=== PATIENT | male | born 1970 | race Caucasian/White ===

== ENCOUNTER 2020-03-06 12:49 | Outpatient (CLI) | payer BC | END 2020-03-06 12:50 | disposition home or self-care (01) | LOC: ULT 12:49 | PROVIDERS: ATTEND Student in an Organized Health Care Education/Training Program | DX: R01.1 Cardiac murmur, unspecified (principal) | CPT/HCPCS: 93306 ==

== ENCOUNTER 2020-03-09 10:46 | Outpatient (CLI) | payer BC, OTHER ==
[2020-03-09 14:23] LABS: #Basophils 0.1 thou/uL (0.0-0.2); #Eosinphils 0.2 thou/uL (0.0-0.7); #Lymphocytes 1.9 thou/uL (1.20-3.40); #Monocytes 0.7 thou/uL (0.11-0.59); #Neutrophils 4.5 thou/uL (1.40-6.50); %Basophils 0.9 % (0.0-1.0); %Eosinophils 2.3 % (0.0-10.0); %Lymphocytes 26.3 % (21.0-51.0); %Monocytes 9.9 % (0.0-10.0); %Neutrophils 60.6 % (42.0-75.0); Hemoglobin 14.6 g/dL (14.0-18.0); Mean Corpuscular HGB CONC 33.3 g/dL (32.0-36.0); Mean Corpuscular Hemoglobin 34.6 pg (27.0-31.0); Mean Platelet Volume 7.4 fL (7.4-10.4); Platelet Count 261 thou/uL (130-400); RBC Distribution Width 11.8 % (11.5-14.5); Red Blood Cell (RBC) Count 4.21 mill/uL (4.70-6.10); White Blood Cell (WBC) Count 7.4 thou/uL (4.8-10.8)
[2020-03-09 14:44] LABS: ALT (SGPT) 16 U/L (8-55); AST (SGOT) 14 U/L (5-34); Albumin 4.1 g/dL (3.5-5.0); Alkaline Phosphatase 64 U/L (40-110); Anion Gap 10 mmol/L (10-20); BUN (Urea Nitrogen) 7 mg/dL (8.4-25.7); Bilirubin, Total 0.6 mg/dL (0.2-1.2); Calc. Creatinine Clearance 0 mL/min (70-130); Calcium 8.8 mg/dL (7.8-10.44); Carbon Dioxide 26 mmol/L (22-29); Chloride 99 mmol/L (98-107); Estimated GFR-MDRD Greater than 90; Globulin 2.3 g/dL (2.4-3.5); Glucose 84 mg/dL (70-105); Potassium 3.8 mmol/L (3.5-5.1); Protein, Total 6.4 g/dL (6.0-8.3); Sodium 131 mmol/L (136-145)
[2020-03-10 19:51] LABS: SARS-CoV-2 MS2 Positive; SARS-CoV-2 N Gene Negative; SARS-CoV-2 S Gene Negative; SARS-CoV-2 orf1ab Negative
== END 2020-03-09 10:47 | disposition home or self-care (01) ==
LOC: LABBT 10:46
PROVIDERS: ATTEND Internal Medicine Cardiovascular Disease
DX: Z01.812 Encounter for preprocedural laboratory examination (principal); Z11.59 Encounter for screening for other viral diseases; I25.10 Atherosclerotic heart disease of native coronary artery without angina pectoris
CPT/HCPCS: 80053; 85025; 87635; U0003

== ENCOUNTER 2020-03-13 06:01 | Day surgery (SDC) | payer BC ==
[2020-03-09 13:17] VITALS: BMI 25.1
[2020-03-13] MEDS ORDERED: Fentanyl 100 MCG/2 ML VIAL ONE (07:17)
[2020-03-13] MEDS ORDERED: Midazolam HCl 2 mg/2 ml Vial ONE (07:17)
[2020-03-13] MEDS ORDERED: Heparin 10,000 UNITS/1 ML VIAL ONE (07:18)
[2020-03-13] MEDS ORDERED: Verapamil 5 MG/2 ML VIAL ONE (07:18)
[2020-03-13] MEDS ORDERED: Enalaprilat Dihydrate 1.25 MG/ML VIAL ONE (07:18)
[2020-03-13] MEDS ORDERED: Nitroglycerin 100MG/250ML BOT 250 ML ONE (07:18)
[2020-03-13] MEDS ORDERED: DOPamine 400 MG/D5W 250 ML 250 ML ONE (07:48)
[2020-03-13] MEDS ORDERED: Iopamidol 370 76% 100 ML VIAL ONE (09:20)
--- NOTE | 2020-03-13 13:16 | CON ---
DATE OF CONSULTATION: HISTORY OF PRESENT ILLNESS: This is a 50-year-old gentleman with minimal medical care prior to this evaluation. [facility] for 2 episodes of near syncope after working outside. He was found to have a loud aortic stenosis murmur on a cardiac echo, confirmed this with mean and peak gradients of 50 and 90 and a valve area of about 0.5, although one leaflet seem to move. It was unclear whether he had a bicuspid or tricuspid valve. Left ventricular systolic function was preserved. He underwent cardiac catheterization today, showing about a 75% stenosis in the distal OM that was sizable. PAST MEDICAL HISTORY: Negative for any major medical problems, but does have dyslipidemia. FAMILY HISTORY: Unknown as he is adopted. SOCIAL HISTORY: The patient was a greater than a pack per day smoker until the past couple of weeks when he is down to about a half a pack a day. He also drank about a six-pack of beer every day, but stopped this about 2 months ago. The patient is . MEDICATIONS: Include: 1. Aspirin a day. 2. Ibuprofen 3 times a day. 3. Atorvastatin 40 a day. PAST SURGICAL HISTORY: 1. Tonsillectomy. 2. A ganglion cyst removal, right wrist. ALLERGIES: NONE KNOWN. REVIEW OF SYSTEMS: PHYSICAL EXAMINATION: VITAL SIGNS: Weight 177, height 71, heart rate 70, and blood pressure 120/70. NECK: Soft radiated bruit on the right. CARDIAC: Regular rate and rhythm. Harsh loud systolic murmur across the precordium. ABDOMEN: Soft and nontender. EXTREMITIES: He has palpable pedal pulses. He has a left radial pulse and he has a dressing on his right wrist. He has no peripheral edema. ASSESSMENT: At this time, it appears that the patient needs a mechanical aortic valve as well as a single graft to his obtuse marginal system. He has on review of systems no history of GI bleeding or hematochezia. He has nocturia x3-4, but states he drinks a lot of water during the day. He has had no history of stroke or TIA. He has no claudication. PLAN: CT scan today to evaluate the ascending aorta and then proceed with aortic valve replacement as a single bypass grafting probably next week. Job ID: [id number]
--- NOTE | 2020-03-13 13:58 | CT ---
CHEST CT WITHOUT CONTRAST: HISTORY: Evaluate the size of the ascending thoracic aorta. Preoperative study. COMPARISON: None. FINDINGS: Mediastinum: No mass, lymphadenopathy or hematoma. Heart: Normal heart size. No significant pericardial fluid. Trachea and central bronchi: Patent. Pleural spaces: No pleural effusion. Pneumothorax: None. Small bleb in the junction of the superior segment of the right lower lobe and right upper lobe. No s uspicious masses, consolidation or pulmonary contusions. Upper solid abdominal viscera is grossly unremarkable. No lytic or blastic lesions within the osseous structures. Remote compression deformity with mild los s of vertebral body height at T4 and T9. Aorta: Limited evaluation by the lack of IV contrast. There is calcified plaque in the aortic valve. At the level of the bifurcation of the central pulmonary artery, the aorta measures 3.7 cm anterior-posterior by 4.1 cm mediolateral. At the level of the pulmonary artery trunk, the aorta buster ures 3.9 cm anterior-posterior by 3.8 cm mediolateral. IMPRESSION: Upper normal caliber of the ascending thoracic aorta. Transcribed Date/Time: 03/13/2020 2:17 PM
== END 2020-03-13 13:50 | disposition home or self-care (01) ==
LOC: CCL 06:01
PROVIDERS: ATTEND Internal Medicine Cardiovascular Disease
PROC: 4A023N7 Measurement of Cardiac Sampling and Pressure, Left Heart, Percutaneous Approach (ICD-10-PCS; principal; 2020-03-13)
PROC: B2011ZZ Plain Radiography of Multiple Coronary Arteries using Low Osmolar Contrast (ICD-10-PCS; principal; 2020-03-13)
DX: I35.0 Nonrheumatic aortic (valve) stenosis (principal); F17.210 Nicotine dependence, cigarettes, uncomplicated; Z79.82 Long term (current) use of aspirin; Z79.899 Other long term (current) drug therapy
CPT/HCPCS: 71250; 93454; 99152; C1769; J1265; J1644; J2250; J3010; Q9967

== ENCOUNTER 2020-03-20 06:31 | Outpatient (CLI) | payer BC, OTHER ==
[2020-03-20 22:19] LABS: SARS-CoV-2 MS2 Positive; SARS-CoV-2 N Gene Negative; SARS-CoV-2 S Gene Negative; SARS-CoV-2 orf1ab Negative
== END 2020-03-20 06:32 | disposition home or self-care (01) ==
LOC: LABBT 06:31
PROVIDERS: ATTEND Thoracic Surgery (Cardiothoracic Vascular Surgery)
DX: Z01.818 Encounter for other preprocedural examination (principal); T84.012D Broken internal right knee prosthesis, subsequent encounter
CPT/HCPCS: 87635; 93005; 93010; U0003

== ENCOUNTER 2020-03-20 09:00 | Inpatient (IN) | payer BC, OTHER ==
[2020-03-20 10:47] LABS: Hemoglobin 14.8 g/dL (14.0-18.0); Mean Corpuscular HGB CONC 33.5 g/dL (32.0-36.0); Mean Corpuscular Hemoglobin 34.5 pg (27.0-31.0); Mean Platelet Volume 7.4 fL (7.4-10.4); Platelet Count 300 thou/uL (130-400); RBC Distribution Width 11.6 % (11.5-14.5); Red Blood Cell (RBC) Count 4.28 mill/uL (4.70-6.10); White Blood Cell (WBC) Count 6.5 thou/uL (4.8-10.8)
[2020-03-20 11:16] LABS: Anion Gap 9 mmol/L (10-20); BUN (Urea Nitrogen) 9 mg/dL (8.4-25.7); Calc. Creatinine Clearance 0 mL/min (70-130); Calcium 9.2 mg/dL (7.8-10.44); Carbon Dioxide 29 mmol/L (22-29); Chloride 100 mmol/L (98-107); Estimated GFR-MDRD Greater than 90; Glucose 87 mg/dL (70-105); Sodium 134 mmol/L (136-145)
[2020-03-22] MEDS ORDERED: Vancomycin 1 GM/200 ML BAG ONE (06:20)
[2020-03-22] MEDS ORDERED: Fentanyl 250 MCG/5 ML VIAL ONE (06:27)
[2020-03-22] MEDS ORDERED: Midazolam HCl 2 mg/2 ml Vial ONE (06:27)
[2020-03-22] MEDS ORDERED: Albumin 5% 500 ML ONE ×2 (06:28→06:35)
[2020-03-22] MEDS ORDERED: Phenylephrine 10 MG/ML VIAL ONE (06:28)
[2020-03-22] MEDS ORDERED: Dexmedetomidine 200 MCG/2 ML VIAL ONE (06:28)
[2020-03-22] MEDS ORDERED: Heparin 10,000 UNITS/1 ML VIAL 30,000 UNITS in Sodium Chloride 0.9% 1,000 ML FS SCH (07:00)
[2020-03-22] MEDS ORDERED: PHENYLEPHRINE-NS 100 MCG/ML 10 ML SYRINGE ONE ×2 (08:13→13:46)
[2020-03-22] MEDS ORDERED: Insulin Regular 300 UNITS/3 ML VIAL ONE (08:34)
[2020-03-22] MEDS ORDERED: Magnesium 2 GM/50 ML 2 GM in Premix Bag 1 BAG IVPB SCH (12:05)
[2020-03-22] MEDS ORDERED: Promethazine HCl 25 MG/ML VIAL IM PRN (12:05)
[2020-03-22] MEDS ORDERED: hydrALAZINE 20 MG/ML VIAL SLOW IVP PRN (12:05)
[2020-03-22] MEDS ORDERED: niCARdipine 25 MG in Sodium Chloride 0.9% 250 ML 250 ML IVPB PRN (12:05)
[2020-03-22] MEDS ORDERED: Bisacodyl 10 MG SUPP PR PRN (12:05)
[2020-03-22] MEDS ORDERED: Acetaminophen 325 MG TAB PO PRN (12:05)
[2020-03-22] MEDS ORDERED: Norepinephrine 8 MG/0.9% NS 250 ML IVPB PRN (12:05)
[2020-03-22] MEDS ORDERED: Morphine 2 MG/ML SYRINGE SLOW IVP PRN (12:05)
[2020-03-22] MEDS ORDERED: Hetastarch 6% 500 ML 500 ML IVPB PRN (12:05)
[2020-03-22] MEDS ORDERED: Mag-Al 1200 mg/1200 mg/30 ML UDCUP PO PRN (12:05)
[2020-03-22] MEDS ORDERED: Bisacodyl 5 MG TAB PO PRN (12:05)
[2020-03-22] MEDS ORDERED: HYDROcodone/Acetaminophen 5/325 mg Tablet PO PRN (12:05)
[2020-03-22] MEDS ORDERED: Guaifenesin DM 100-10/5 ML UDCUP PO PRN (12:05)
[2020-03-22] MEDS ORDERED: Nitroglycerin 50 MG/250 ML BOT 250 ML IVPB PRN (12:05)
[2020-03-22] MEDS ORDERED: Fentanyl 100 MCG/2 ML VIAL SLOW IVP PRN (12:05)
[2020-03-22] MEDS ORDERED: Post-Op Insulin Drip Protocol IVPB ONE (12:05)
[2020-03-22 12:19] LABS: Actual Bicarbonate (HCO3a) 24.5 mEq/L (22-28); Base Excess (BEa) -2.8 mEq/L (-2.0 to +3.0); CO2 Tension 53.2 mmHg (35.0-45.0); Calcium, Ionized 1.16 mmol/L (1.12-1.30); Carboxyhemoglobin (COHb) 0.5 gm% (0.0-3.0); Hemoglobin (Hb) 12.5 g/dL (14.0-18.0); O2 Tension (PaO2), arterial 130.4 mmHg (80.0-100.0); Potassium - ABG Lab 4.13 mmol/L (3.70-5.30); pH, Arterial 7.28 (7.35-7.45)
[2020-03-22 12:20] LABS: Puncture Site ALINE
[2020-03-22 12:26] LABS: #Basophils 0.1 thou/uL (0.0-0.2); #Eosinphils 0.2 thou/uL (0.0-0.7); #Lymphocytes 1.4 thou/uL (1.20-3.40); #Monocytes 1.1 thou/uL (0.11-0.59); #Neutrophils 16.6 thou/uL (1.40-6.50); %Basophils 0.3 % (0.0-1.0); %Eosinophils 0.8 % (0.0-10.0); %Lymphocytes 7.3 % (21.0-51.0); %Monocytes 5.6 % (0.0-10.0); %Neutrophils 86.1 % (42.0-75.0); Hemoglobin 12.4 g/dL (14.0-18.0); Mean Corpuscular HGB CONC 34.2 g/dL (32.0-36.0); Mean Corpuscular Hemoglobin 34.8 pg (27.0-31.0); Mean Platelet Volume 6.9 fL (7.4-10.4); Platelet Count 200 thou/uL (130-400); RBC Distribution Width 11.6 % (11.5-14.5); Red Blood Cell (RBC) Count 3.57 mill/uL (4.70-6.10); White Blood Cell (WBC) Count 19.3 thou/uL (4.8-10.8)
[2020-03-22] MEDS ORDERED: Dextrose 50% Abboject 50 ML SYRINGE SLOW IVP PRN (12:30)
[2020-03-22] MEDS ORDERED: Dextrose 5% in Water 1,000 ML IV PRN (12:30)
[2020-03-22] MEDS ORDERED: HUMULIN R 100 UNITS in Sodium Chloride 0.9% 100 ML IVPB SCH (12:30)
[2020-03-22 12:31] LABS: INR-International Normal Ratio 1.4; PTT 37.2 sec (22.9-36.1); Prothrombin Time 17.3 sec (12.0-14.7)
[2020-03-22] MEDS: Fentanyl 100 MCG/2 ML VIAL SLOW IVP PRN (12:34)
[2020-03-22] MEDS: Ketorolac Tromethamine 30 MG/ML VIAL IVP SCH ×3 (12:45→23:01)
[2020-03-22 12:48] LABS: Anion Gap 9 mmol/L (10-20); BUN (Urea Nitrogen) 10 mg/dL (8.4-25.7); Calc. Creatinine Clearance 123 mL/min (70-130); Calcium 7.7 mg/dL (7.8-10.44); Carbon Dioxide 25 mmol/L (22-29); Chloride 111 mmol/L (98-107); Estimated GFR-MDRD Greater than 90; Glucose 115 mg/dL (70-105); Potassium 4.1 mmol/L (3.5-5.1); Sodium 141 mmol/L (136-145)
--- NOTE | 2020-03-22 12:58 | RAD ---
EXAM: CHEST ONE VIEW HISTORY: Post open heart surgery. COMPARISON: None FINDINGS: Endotracheal tube is noted in place with tip overlying the T5 vertebral body and above the level of t he esteban. Right-sided vascular catheter is noted in place with subclavian approach with tip overlies but location of the right atrium near the cavoatrial junction. Mediastinal drains are noted in place. Median sternotomy wires and evidence of cardiac valve replacement are seen. Cardiac silhouette is magnified by projection. Pulmonary vasculature is at the upper limits of normal. The ace ngs are clear. No pneumothorax or pleural effusion is identified. Osseous structures have a normal appearance. IMPRESSION: Median sternotomy wires noted with lines and tubes in place as described above. No pneumothorax or pl eural effusion is seen.
[2020-03-22] MEDS: Ondansetron PF 4 MG/2 ML Vial IVP PRN (13:42)
[2020-03-22] MEDS: CEFAZOLIN 2 GM in Premix Bag 1 BAG IVPB SCH ×2 (13:45→21:00)
[2020-03-22] MEDS ORDERED: Vecuronium 10 MG VIAL ONE (13:46)
[2020-03-22] MEDS ORDERED: Papaverine 60 MG/2 ML VIAL ONE (13:46)
[2020-03-22] MEDS ORDERED: Calcium Chloride 1 GM/10 ML Abboject SYRINGE ONE (13:46)
[2020-03-22] MEDS ORDERED: Magnesium Sulfate 1 GM/2 ML VIAL ONE (13:46)
[2020-03-22] MEDS ORDERED: Sodium Bicarb 50 MEQ/50 ML Abboject 8.4% SYRINGE ONE (13:46)
[2020-03-22] MEDS ORDERED: Rocuronium Bromide 10 MG/ML (10ML VIAL) ONE (13:46)
[2020-03-22] MEDS ORDERED: Lidocaine 2% PF 5 ML VIAL ONE (13:46)
[2020-03-22] MEDS ORDERED: Potassium Chloride 60 MEQ/30 ML VIAL ONE (13:46)
[2020-03-22] MEDS ORDERED: Protamine Sulfate 250 MG/25 ML VIAL ONE (13:46)
[2020-03-22] MEDS ORDERED: Ondansetron PF 4 MG/2 ML Vial ONE (13:46)
[2020-03-22] MEDS ORDERED: Ketorolac Tromethamine 30 MG/ML VIAL ONE (13:46)
[2020-03-22] MEDS ORDERED: Cardioplegic Soln 1,000 ML BAG ONE (13:46)
[2020-03-22] MEDS ORDERED: Dexamethasone 20 MG/5 ML VIAL ONE (13:46)
[2020-03-22] MEDS ORDERED: Heparin 5,000 UNITS/ML VIAL ONE (13:46)
[2020-03-22] MEDS ORDERED: Heparin 30,000 units/30 ml VIAL ONE (13:46)
[2020-03-22] MEDS ORDERED: Aminocaproic Acid 5 GM/20 ML VIAL ONE (13:46)
[2020-03-22] MEDS ORDERED: Thrombin 5000 UNITS/5 ML VIAL ONE (13:46)
[2020-03-22] MEDS: DOPamine 400 MG/D5W 250 ML 250 ML IVPB PRN (13:50)
--- NOTE | 2020-03-22 14:12 | OP ---
DATE OF PROCEDURE: 03/22/2020 PREOPERATIVE DIAGNOSES: Critical aortic valve stenosis, single-vessel coronary artery disease. PROCEDURES: Aortic valve replacement with a #21 Inspiris bioprosthetic valve and coronary artery bypass graft x1 with saphenous vein to distal obtuse marginal. SURGEON: Jeremias Desouza MD FARM OPERATOR: Dr. Panda. TRANSFUSION: One platelet pack. DESCRIPTION OF PROCEDURE: After adequate anesthesia had been obtained, Dr. Panda did an open saphenous vein harvest of the right greater saphenous vein while I performed a median sternotomy. The pericardium was opened. Traction sutures were placed. Pursestring sutures were placed in the aorta with some bleeding evidently from a very thin aortic wall. Heparin was given after adequate ACT aortic cannula was placed. A right atrial dual stage venous cannula was placed, and cardiopulmonary bypass was began with good ACT levels greater than 500 seconds. A right superior pulmonary vein sump was placed. The heart was elevated into the wound to examine the obtuse marginal, and it was noted that the patient had rather severe left ventricular hypertrophy. The aorta was crossclamped, and a 1200 mL of [place] cardioplegic solution was given. The obtuse marginal was opened, and saphenous vein was anastomosed here. Following this, the aorta was opened about 2 cm above what was expected to be the annulus. Inspection demonstrated a bicuspid aortic valve with no clearly defined annulus. The valve was removed piecemeal taking care to remove any particulate matter. During takedown of the valve, the left main could not be visualized. The right coronary artery was never visualized. After initially removing what was felt to be the bulk of the valve, it was felt that dissection may have been carried down along the anterior leaflet of the mitral valve, although the leaflet was intact. Between the left and right coronary cusps, there was severe thickening and it was not clear whether we were dealing with muscle or valve leaflet. Annular sutures were placed along the noncoronary annulus, which was more easily identified tacking the mitral valve leaflet back to the annulus. Further inspection and dissection along the left coronary leaflet did finally demonstrate the left main coronary artery and it lied immediately adjacent to the annulus. Further valve was then removed along this area, and it was evident at this time that the valve was about a cm thick, and we were not visualizing muscle, but the anterior of a thickened valve. This was removed, and at that time, a 21 Sizer was felt to be the largest that could be fit into the aorta and then through the annulus. Due to the rather irregular tissue edges in the region of the annulus due to the very thickened valve, it was felt by Dr. Panda and myself that mechanical leaflets might impinge in this region, and for this reason, it was elected to place the Inspiris valve instead. After pledgeted sutures had been placed circumferentially with the pledgets deep to the annulus with about 20 sutures, the valve was then seated. Sutures were then secured. Following which there appeared to be nice seeding circumferentially. Inspection through the valve was done to determine if there was any further loose debris. The ventricle had been irrigated copiously prior to seating the valve. Following this, the aorta was closed with a double layer of 5-0 Prolene suture. The CO2 had been instilled into the pericardium well throughout the procedure, and air was vented through the aortic root while the aorta was being closed. Following this, the cross-clamp was removed, and the partial occluding clamp was placed, and a single proximal anastomosis was performed on the aortic root. The patient spontaneously had a sinus rhythm. After rewarming, the patient was weaned from cardiopulmonary bypass removing the sump, and then aortic and right atrial cannulas after protamine administration had begun. Aortic cannulation site was dry, but was secured with an additional 5-0 Prolene suture. Temporary ventricular pacing wires were placed as well as 2 mediastinal drains. The sternum was reapproximated with #7 interrupted wire using vancomycin paste on the sternal edges. There was significant oozing from the sternal edges throughout the case, and platelet pack was ordered. Additional 50 mg of protamine was given while the subcutaneous tissue and skin were closed in layers. Job ID: [id number]
[2020-03-22] MEDS: Insulin Regular 300 UNITS/3 ML VIAL SC PRN ×3 (16:24→23:45)
[2020-03-22 16:32] LABS: Actual Bicarbonate (HCO3a) 18.7 mEq/L (22-28); Base Excess (BEa) -1.8 mEq/L (-2.0 to +3.0); Calcium, Ionized 1.09 mmol/L (1.12-1.30); Carboxyhemoglobin (COHb) 0.5 gm% (0.0-3.0); Hemoglobin (Hb) 12.7 g/dL (14.0-18.0); O2 Tension (PaO2), arterial 128.3 mmHg (80.0-100.0); Potassium - ABG Lab 3.53 mmol/L (3.70-5.30)
[2020-03-22] MEDS: Vancomycin 1 GM in Premix Bag 1 BAG IVPB SCH (17:00)
[2020-03-22] MEDS: Sodium Chloride 0.9% 1,000 ML IV SCH (17:00)
[2020-03-22 17:04] LABS: CO2 Tension 21.9 mmHg (35.0-45.0); pH, Arterial 7.55 (7.35-7.45)
[2020-03-22 17:05] LABS: ALV-art Gradient 129.525 (0-20); Puncture Site LINE
[2020-03-22 18:03] LABS: Hemoglobin 11.2 g/dL (14.0-18.0)
[2020-03-22 18:13] LABS: Potassium 3.5 mmol/L (3.5-5.1)
[2020-03-22] MEDS: Potassium Chloride 20 MEQ/100 ML PREMIX BAG IVPB PRN (18:46)
[2020-03-22] MEDS: HYDROcodone/Acetaminophen 5/325 mg Tablet PO PRN (19:36)
[2020-03-22] MEDS: Atorvastatin Calcium 40 MG TAB PO SCH (20:48)
[2020-03-22] MEDS: Famotidine/PF 20 mg/2ml Vial SLOW IVP SCH (20:48)
[2020-03-23] MEDS: HYDROcodone/Acetaminophen 5/325 mg Tablet PO PRN ×5 (01:07→20:54)
[2020-03-23] MEDS: Fentanyl 100 MCG/2 ML VIAL SLOW IVP PRN (02:51)
[2020-03-23] MEDS: DOPamine 400 MG/D5W 250 ML 250 ML IVPB PRN ×2 (03:05→17:12)
[2020-03-23] MEDS: Insulin Regular 300 UNITS/3 ML VIAL SC PRN (04:10)
[2020-03-23 04:53] LABS: Anion Gap 8 mmol/L (10-20); BUN (Urea Nitrogen) 8 mg/dL (8.4-25.7); Calc. Creatinine Clearance 133 mL/min (70-130); Carbon Dioxide 24 mmol/L (22-29); Chloride 108 mmol/L (98-107); Estimated GFR-MDRD Greater than 90; Glucose 120 mg/dL (70-105); Potassium 3.9 mmol/L (3.5-5.1); Sodium 136 mmol/L (136-145)
[2020-03-23 05:14] LABS: #Lymphocytes 1.1 thou/uL (1.20-3.40); #Monocytes 1.3 thou/uL (0.11-0.59); #Neutrophils 8.6 thou/uL (1.40-6.50); %Basophils 0.2 % (0.0-1.0); %Eosinophils 0.2 % (0.0-10.0); %Lymphocytes 9.6 % (21.0-51.0); Hemoglobin 10.2 g/dL (14.0-18.0); Mean Corpuscular HGB CONC 33.4 g/dL (32.0-36.0); Mean Platelet Volume 7.4 fL (7.4-10.4); Platelet Count 207 thou/uL (130-400); RBC Distribution Width 11.6 % (11.5-14.5); White Blood Cell (WBC) Count 11.1 thou/uL (4.8-10.8)
[2020-03-23] MEDS: CEFAZOLIN 2 GM in Premix Bag 1 BAG IVPB SCH (05:38)
[2020-03-23] MEDS: Potassium Chloride 20 MEQ/100 ML PREMIX BAG IVPB PRN (05:39)
[2020-03-23] MEDS: Ketorolac Tromethamine 30 MG/ML VIAL IVP SCH ×4 (05:39→23:11)
[2020-03-23] MEDS: Vancomycin 1 GM in Premix Bag 1 BAG IVPB SCH (05:39)
[2020-03-23 06:43] VITALS: BMI 28.1
[2020-03-23] MEDS: Sodium Chloride 0.9% 1,000 ML IV SCH ×2 (06:45→19:55)
--- NOTE | 2020-03-23 07:05 | PRG ---
DATE OF SERVICE: 03/23/2020 SUBJECTIVE: The patient is postop day 1 from aortic valve replacement with #21 Inspiris valve and a single-vessel bypass graft. He was extubated about 1500 yesterday and has been maintained on low-dose dopamine at about 4 mcg currently. He has remained in sinus rhythm with a heart rate of about 66 and his blood pressure has been around 100 to 120. Chest tube output since surgery is at a total of 750 and urine output has been about 3 L since surgery. LABORATORY DATA: His hemoglobin has drifted to about 10.2, his platelet count remains good. His creatinine is 0.73 and his potassium is 3.9. Sodium is increased to 136, which is a good level for him. PHYSICAL EXAMINATION: GENERAL: He is awake, alert. States good strength in arms and legs. He states he has slightly blurry vision in the right eye. His pain is about a 6/10. LUNGS: Clear anteriorly. CARDIAC: Reveals a systolic murmur at the right upper sternal border, 2/6 to 3/6, decreased intensity from preop. ABDOMEN: Soft, quiet. EXTREMITIES: Warm. ASSESSMENT AND PLAN: Chest x-ray is clear. Continued low-dose dopamine at the present time, as well as maintenance IV fluids. No other changes presently. Job ID: [id number]
[2020-03-23] MEDS: Famotidine/PF 20 mg/2ml Vial SLOW IVP SCH ×2 (09:08→20:55)
[2020-03-23] MEDS: Ondansetron PF 4 MG/2 ML Vial IVP PRN (09:09)
[2020-03-23] MEDS: Aspirin 325 MG TAB PO SCH (09:10)
--- NOTE | 2020-03-23 09:56 | RAD ---
PORTABLE CHEST: HISTORY: Postop sternotomy. COMPARISON: 03/22/2020. FINDINGS/IMPRESSION: ET tube has been removed. Central line remains in place. Cardiomegaly with postop sternotomy change . Left basilar opacification obscures the left hemidiaphragm, probably atelectasis. Lungs otherwise clear and unchanged. POS: [facility]
--- NOTE | 2020-03-23 14:17 | PRG ---
DATE OF SERVICE: 03/23/2020 SUBJECTIVE: Mr. Quinonez recently underwent aortic valve replacement. Instead of a mechanical valve, a tissue valve was placed due to significant degeneration of the valve and anulus. He also underwent bypass surgery x1. Mr. Quinonez is currently sore. No other specific complaints. OBJECTIVE: VITAL SIGNS: Blood pressure 117/50, pulse 64. Temperature, afebrile. LUNGS: Clear to auscultation. HEART: Regular rate and rhythm. ABDOMEN: Soft, nontender, nondistended. EXTREMITIES: No edema. PERTINENT LABORATORY DATA: Hemoglobin 10.2, hematocrit 30.5. Creatinine 0.7. IMPRESSION: 1. Coronary artery disease. 2. Aortic stenosis. 3. Status post bypass surgery and aortic valve replacement. RECOMMENDATIONS: Mr. Quinonez currently has epicardial leads in place. He is pacing appropriately when increasing the pacing rate to 90. His [place] rhythm is currently stable at 60. He is currently on a dopamine at 4 mcg. We would recommend weaning off dopamine and keeping the pacer in place overnight. If he is off dopamine, we would then consider removing the pacer wires tomorrow. Otherwise, continue incentive spirometry and bed to chair. Job ID: [id number]
[2020-03-23] MEDS: Atorvastatin Calcium 40 MG TAB PO SCH (20:54)
[2020-03-24] MEDS: HYDROcodone/Acetaminophen 5/325 mg Tablet PO PRN ×4 (03:56→20:23)
[2020-03-24 04:15] LABS: #Basophils 0.1 thou/uL (0.0-0.2); #Eosinphils 0.1 thou/uL (0.0-0.7); #Lymphocytes 1.3 thou/uL (1.20-3.40); #Monocytes 1.3 thou/uL (0.11-0.59); #Neutrophils 8.7 thou/uL (1.40-6.50); %Basophils 0.6 % (0.0-1.0); %Lymphocytes 11.5 % (21.0-51.0); %Monocytes 11.1 % (0.0-10.0); %Neutrophils 75.8 % (42.0-75.0); Hemoglobin 10.1 g/dL (14.0-18.0); Mean Corpuscular Hemoglobin 34.2 pg (27.0-31.0); Mean Platelet Volume 6.9 fL (7.4-10.4); Platelet Count 180 thou/uL (130-400); RBC Distribution Width 11.6 % (11.5-14.5); Red Blood Cell (RBC) Count 2.94 mill/uL (4.70-6.10); White Blood Cell (WBC) Count 11.4 thou/uL (4.8-10.8)
[2020-03-24 04:34] LABS: Anion Gap 10 mmol/L (10-20); BUN (Urea Nitrogen) 8 mg/dL (8.4-25.7); Calc. Creatinine Clearance 134 mL/min (70-130); Calcium 8.5 mg/dL (7.8-10.44); Carbon Dioxide 24 mmol/L (22-29); Chloride 103 mmol/L (98-107); Estimated GFR-MDRD Greater than 90; Glucose 103 mg/dL (70-105); Potassium 4.4 mmol/L (3.5-5.1); Sodium 133 mmol/L (136-145)
[2020-03-24] MEDS: Ketorolac Tromethamine 30 MG/ML VIAL IVP SCH ×3 (05:26→18:03)
[2020-03-24] MEDS ORDERED: Nitroglycerin 0.4 MG TAB (25 Tab Bottle) SL PRN (07:27)
[2020-03-24] MEDS ORDERED: Guaifenesin DM 100-10/5 ML UDCUP PO PRN (07:27)
[2020-03-24] MEDS: Aspirin 325 mg Enteric Coated Tablet PO SCH (07:53)
[2020-03-24] MEDS: Potassium Chloride 10 MEQ TAB PO SCH (07:53)
[2020-03-24] MEDS: Furosemide 40 MG TAB PO SCH (07:53)
[2020-03-24] MEDS: Famotidine 20 MG TAB PO SCH ×2 (07:53→20:11)
[2020-03-24] MEDS: Aspirin 325 MG TAB PO SCH (07:54)
--- NOTE | 2020-03-24 08:41 | RAD ---
PORTABLE CHEST: Date: 03/24/2020 HISTORY: Postop open heart surgery. COMPARISON: Prior day's exam. FINDINGS: Heart size is enlarged. There is postop sternotomy change. Right-sided central line is unchanged in p osition. Some parenchymal changes in the left base suggest atelectasis. IMPRESSION: Stable chest. POS: [facility]
[2020-03-24] MEDS: Atorvastatin Calcium 40 MG TAB PO SCH (20:11)
[2020-03-25] MEDS: Ketorolac Tromethamine 30 MG/ML VIAL IVP SCH ×3 (00:15→11:45)
[2020-03-25] MEDS: HYDROcodone/Acetaminophen 5/325 mg Tablet PO PRN ×4 (03:07→21:00)
[2020-03-25] MEDS: Potassium Chloride 10 MEQ TAB PO SCH (07:40)
[2020-03-25] MEDS: Famotidine 20 MG TAB PO SCH ×2 (07:41→20:59)
[2020-03-25] MEDS: Aspirin 325 mg Enteric Coated Tablet PO SCH (07:41)
[2020-03-25] MEDS: Furosemide 40 MG TAB PO SCH (07:41)
[2020-03-25] MEDS: Atorvastatin Calcium 40 MG TAB PO SCH (20:59)
[2020-03-26] MEDS: Aspirin 325 mg Enteric Coated Tablet PO SCH (08:35)
[2020-03-26] MEDS: Potassium Chloride 10 MEQ TAB PO SCH (08:35)
[2020-03-26] MEDS: Furosemide 40 MG TAB PO SCH (08:35)
[2020-03-26] MEDS: Famotidine 20 MG TAB PO SCH (08:35)
--- NOTE | 2020-03-26 10:00 | PRG ---
DATE OF SERVICE: 03/26/2020 SUBJECTIVE: Mr. Quinonez was doing much better than did on Thursday when I last saw him. He is ambulating and not having significant complaints. His rhythm has been stable. MEDICATIONS: Current active cardiac medications; 1. Lipitor 40 at bedtime. 2. Lasix 40 daily. OBJECTIVE: GENERAL: Patient is a pleasant male, who is in no acute distress. The patient appears their stated age. VITAL SIGNS: Heart rate 76, temperature 98.7, and blood pressure 141/72. NEUROLOGIC: The patient is alert and oriented x3 with no focal neurologic deficits. HEENT: Sclerae without icterus. Mouth has moist mucous membranes with normal pallor. NECK: No JVD. Carotid upstroke brisk. No bruits bilaterally. LUNGS: Clear to auscultation with unlabored respirations. BACK: No scoliosis or kyphosis. CARDIAC: Regular rate and rhythm with normal S1 and S2. No S3 or S4 noted. No significant rubs, murmurs, thrills, or gallops noted throughout the precordium. PMI is not displaced. There is no parasternal heave. ABDOMEN: Soft, nontender, nondistended. No peritoneal signs present. No hepatosplenomegaly. No abnormal striae. EXTREMITIES: 2+ femoral and 2+ dorsalis pedis pulses. No cyanosis, clubbing, or edema. SKIN: No gross abnormalities. PERTINENT LABORATORY DATA: Hemoglobin 10.1, hematocrit 30.5. IMPRESSION: 1. Coronary artery disease. 2. Aortic stenosis. 3. Status post aortic valve replacement, bypass. RECOMMENDATIONS: 1. Add low-dose beta-eliseo therapy. 2. Continue aspirin and statin therapy. 3. Continue physical therapy and incentive spirometry. 4. . Job ID: [id number]
[2020-03-26 12:27] VITALS: BP 117/71; TEMP 98.4
--- NOTE | 2020-03-27 03:03 | DIS ---
DATE OF ADMISSION: 03/22/2020 DATE OF DISCHARGE: 03/26/2020 HOSPITAL COURSE: The patient was admitted to the hospital on 03/22, where he underwent an aortic valve replacement with a #21 Inspiris bioprosthetic valve. He also underwent single-vessel bypass grafting to an OM. Postoperative course was rather unremarkable. His blood pressure required some low-dose Levophed for the initial 24 to 36 hours, and this was eventually weaned, and his blood pressure was running 120 to 140. His heart rate was running 70 and sinus rhythm. His weight was still up about 10 pounds at 181 at the time of discharge. He will be discharged home on his atorvastatin as well as an aspirin a day which he was taking. In addition, he will receive a prescription for a week supply of Lasix 40 and potassium 10 mEq daily and [place] 5/325. His incisions are healing nicely. His most recent chest x-ray shows small left effusion, and his most recent laboratory values include hemoglobin of 10, sodium of 133, and creatinine of 0.74. Discharge and followup instructions have been given. Job ID: [id number]
--- NOTE | 2020-03-27 21:36 | PQF ---
[facility] Licensed Nurse Practitioner [employer] Winform Viewer SIMONEMARIUSZSEVERINO ZULUAGA MD [id number] CLINICAL DOCUMENTATION CLARIFICATION FORM: POST DISCHARGE Addendum to original discharge summary date: ____ Late entry note date: __ DATE: 03/27/30 ATTN: Severino Desouza Please exercise your independent, professional judgment in responding to the clarification form. Clinical indicators are provided on the bottom of this form for your review Can you please further clarify the diagnosis of the patient? Please check appropriate box(s): [ y ] Hyponatremia [ ] Insignificant laboratory findings [ ] Other diagnosis please specify [ ] Unable to determine In addition, please specify: Present on Admission (POA): [ ] Yes [ ] No [ ] Unable to determine For continuity of documentation, please document condition throughout progress notes and discharge summary. Thank You. CLINICAL INDICATORS - SIGNS / SYMPTOMS/ LABS are present in the medical record: Laboratory- Sodium: 134L, 141, 136, 133L PN 6/5 pg.1- sodium increased to 136, which is a good level for him PN 6/5 pg.1- PE: Cardiac reveals a systolic murmur DS pg.1- His BP required some Levophed for initial 24-36 hours DS pg.1- recent laboratory values include hgb of 10, sodium of 133 and crea of 0.74 RISK FACTORS s/p day1 from aortic valve replacement aortic valve stenosis- OP report pg.1 CAD- OP report pg.1 HTN- Preop Nursing Anesthesia TREATMENT Sodium Monitoring- Laboratory I and O monitoring Sodium Chloride 1L IV- MAR Sodium Bicarbonate 150mEq- IV- MAR (This form is maintained as a part of the permanent medical record) 2014 [employer]. All Rights Reserved [email or web address]
== END 2020-03-26 13:58 | disposition home or self-care (01) | DRG 220 ==
LOC: SURG A 03-22 05:57 → CCU 03-22 12:02 → 2NO 03-24 09:19
PROVIDERS: ADMIT Thoracic Surgery (Cardiothoracic Vascular Surgery); ATTEND Thoracic Surgery (Cardiothoracic Vascular Surgery)
PROC: 02RF08Z Replacement of Aortic Valve with Zooplastic Tissue, Open Approach (ICD-10-PCS; principal; 2020-03-22)
PROC: 021009W Bypass Coronary Artery, One Artery from Aorta with Autologous Venous Tissue, Open Approach (ICD-10-PCS; 2020-03-22)
PROC: 06BP0ZZ Excision of Right Saphenous Vein, Open Approach (ICD-10-PCS; 2020-03-22)
PROC: 5A1221Z Performance of Cardiac Output, Continuous (ICD-10-PCS; 2020-03-22)
DX: I35.0 Nonrheumatic aortic (valve) stenosis (principal); E87.1 Hypo-osmolality and hyponatremia; I25.10 Atherosclerotic heart disease of native coronary artery without angina pectoris; I10 Essential (primary) hypertension; E78.5 Hyperlipidemia, unspecified; J30.2 Other seasonal allergic rhinitis; Z87.891 Personal history of nicotine dependence; Z88.5 Allergy status to narcotic agent; Z79.899 Other long term (current) drug therapy; Z79.82 Long term (current) use of aspirin
CPT/HCPCS: 36416; 36430; 71045; 80048; 82805; 85025; 85027; 85610; 85730; 86850; 86900; 86901; 87635; 93005; 93010; 93798; 94002; J0690; J1100; J1265; J1642; J1644; J1815; J1885; J2001; J2250; J2370; J2405; J2440; J2720; J3010; J3370; J3475; J3480; P9016; P9035; P9045; S0017; S0028; U0003

== ENCOUNTER 2020-06-15 20:23 | Observation (INO) | payer BC, OTHER ==
--- NOTE | 2020-06-16 00:56 | PDOC.FPRHP ---
- History of Present Illness Chief Complaint: presyncope History of Present Illness: Pt is a 50yo male with hx of CAD, s/p CABG and aortic valve replacement who presents with an episode of presyncope. He works on a maintenance crew, outdoors , and this afternoon began to "feel funny". He was unable to describe what that meant. He drank water and rested and felt better. When he went home after work, he took his BP and it was 160s/115. He states he has never been diagnosed with hypertension. Shortly after this he got up to go to the bathroom and felt dizzy and lightheaded, like he was going to faint. He denies LOC or fall. He says he drinks several bottles of water during the day because he works outside. His family was at home and witnessed the event, no slurred speech or focal weakness. Given his recent heart history he decided to go to ED. His surgery was done by Dr. Desouza and his perinatal technician is Dr Morris. Denies CP, SOB, recent illness, diarrhea, diaphoresis, WEAVER, vision changes. - Allergies/Adverse Reactions Allergies Allergy/AdvReac Type Severity Reaction Status Date / Time narcotic Allergy hypotension Uncoded 03/20/20 09:23 - Home Medications Medication Instructions Recorded Confirmed Type Aspirin 325 mg PO DAILY 03/09/20 06/16/20 History Atorvastatin Calcium 40 mg PO HS 03/09/20 06/16/20 History Ibuprofen 200 mg PO DAILY PRN 03/09/20 06/16/20 History diphenhydrAMINE HCl [Allergy] 25 mg PO DAILY PRN 03/09/20 06/16/20 History Polyethylene Glycol 3350 [Miralax] 17 gm PO DAILY PRN 06/16/20 06/16/20 History - History PMHx: CAD, HLD PSHx: CABG and aortic valve replacement March 2020, tonsillectomy, cyst removal FHx: adopted Social: quit smoking in February, previously smoked 1ppd for 20+ years, quit drinking alcohol in January - Review of Systems General: denies: fever/chills, night sweats Eyes: denies: vision changes Respiratory: reports: congestion. denies: cough, shortness of breath Cardiovascular: denies: chest pain, palpitation, edema Gastrointestinal: denies: nausea, vomiting, diarrhea Genitourinary: denies: incontinence, dysuria Skin: denies: rashes Musculoskeletal: reports: pain (residual pain from recent surgery) Neurological: reports: numbness (residual from recent surgery) - Vital signs BP: [] HR: [] RR: [] Tmax: [] Pox: []% on [] Wt: [] - Physical Exam Constitutional: NAD, awake, alert and oriented HEENT: normocephalic and atraumatic, no scleral icterus, grossly normal vision, grossly normal hearing Neck: supple, FROM Chest: no-tender to palpation Heart: RRR, normal S1/S2 -Heart: 2/6 holosystolic murmur best heard at right upper sternal border, no radiation to carotids Lungs: CTAB, no respiratory distress Abdomen: soft, non-tender, bowel sounds present Musculoskeletal: normal structure, normal tone Neurological: no focal deficit, CN II-XII intact, normal sensation Skin: no rash/lesions, no jaundice -Skin: scar on chest and left leg from recent CABG Heme/Lymphatic: no unusual bruising or bleeding Psychiatric: normal mood and affect, good judgment and insight FMR H&P: Results - Labs Result Diagrams: 06/15/20 21:10 06/15/20 21:10 FMR H&P: A/P - Plan #Presyncope 2/2 arrhythmia vs orthostasis vs hyponatremia - initial troponin negative, will trend - Na 128, pending urine studies and serum osm to evaluate cause - strict I/Os, fluid restrict - continuous tele monitoring - pending orthostatics #CAD - home med: atorvastatin and aspirin, will continue - most recent echo done in February, consider ordering repeat - says he had some type of imaging done on carotids in Dr Morris's office, consider requesting records or repeating in hospital #HTN - pt states that he has never been diagnosed with HTN or been on any antihypertensive medications - BPs elevated at home and in ED, systolic 150s to 170s - start lisinopril 10mg - continue to monitor BP Diet: HH, fluid restrict 1800ml Ppx: Lovenox Code: FULL Dispo: admit to tele, obs, LOS <48hrs FMR H&P: Upper Level - Plan Date/Time: 06/16/20 0056 ISheeba MD, have evaluated this patient and agree with findings/plan as outlined by media relations intern resident. Pertinent changes/additions are listed here. This is a 50yo M here with PMH of CABG x 1 vessel and aortic valve replacement in March and who presents to the ER due to lightheadedness and elevated BP. He reports that he was working outside all day - he does prison work at [employer] - when he felt lightheaded and felt "funny." He got home and the feeling did not resolve. He reported that he felt more lightheaded when getting up from a seated position. He denies every having any chest pain, SOB, diaphoresis, numbness/tingling. He states he did not have LOC. He denies any LE swelling, vision changes, slurred speech or facial droop. His and daughter were around when the lightheaded episode occurred to confirm this. Patient endorses adequate water intake - states he has a 16oz water bottle that he fills all the time. He states that his urine has been dilute. He actually wet the bed in the ER because he did not have an available urinal. In the Er the patient was found to have sodium of 128, K 3.2. CXR nml. EKG c/w with previous EKGs. PE remarkable for 3/6 systolic murmur over aortia, no carotid bruits, well healed chest scar and LLE scar from surgery. Neuro exam normal. Will admit patient to tele, obs for work up of Presyncope. Will continue to trend trops. Consider CTA head/neck. Patient reports had imaging of neck done in February and said the result was normal. Hyponatremia - will work up further with urine studies, serum osms. Possibly due to SIADH vs polydipsia. Will fluid restrict 1800ml. Will continue ASA and statin. HTN - BPs >155/90 in ER. Will give lisinopril 10mg. May need to increase dose. Will continue to monitor BPs. Dispo: tele, obs Diet: HH, fluid restrict 1800ml Ppx: Lovenox Code: FULL Case to be discussed with Dr. Dong. Addendum - Attending - Attending Attestation Date/Time: 06/16/20 0750 I personally evaluated the patient and discussed the management with Dr. Lira. I agree with the History, Examination, Assessment and Plan documented above with any addition or exceptions noted below. The patient admitted with presyncope. He has hyponatremia, hypokalemia and hypertension. will replace potassium. Order labs to evaluate hyponatremia. Start lisinopril. Monitor on telemetry.
[2020-06-16 01:17] LABS: Chloride 97 mmol/L (98-107); Potassium 3.2 mmol/L (3.5-5.1); Sodium 128 mmol/L (136-145); Troponin I Less than 0.010 ng/mL (< 0.028)
[2020-06-16 01:18] LABS: Albumin 4.2 g/dL (3.5-5.0); Anion Gap 10 mmol/L (10-20); BUN (Urea Nitrogen) 8 mg/dL (8.4-25.7); Bilirubin, Total 0.6 mg/dL (0.2-1.2); Calc. Creatinine Clearance 0 mL/min (70-130); Carbon Dioxide 24 mmol/L (22-29); Estimated GFR-MDRD Greater than 90; Glucose 91 mg/dL (70-105); Protein, Total 6.2 g/dL (6.0-8.3)
[2020-06-16 01:19] LABS: ALT (SGPT) 22 U/L (8-55); AST (SGOT) 15 U/L (5-34); Alkaline Phosphatase 72 U/L (40-110)
[2020-06-16 01:22] LABS: #Basophils 0.1 thou/uL (0.0-0.2); #Eosinphils 0.2 thou/uL (0.0-0.7); #Lymphocytes 2.1 thou/uL (1.20-3.40); #Monocytes 0.6 thou/uL (0.11-0.59); #Neutrophils 3.5 thou/uL (1.40-6.50); %Basophils 1.3 % (0.0-1.0); %Eosinophils 2.4 % (0.0-10.0); %Lymphocytes 32.6 % (21.0-51.0); %Monocytes 9.4 % (0.0-10.0); %Neutrophils 54.2 % (42.0-75.0); Mean Corpuscular HGB CONC 32.9 g/dL (32.0-36.0); Mean Platelet Volume 6.6 fL (7.4-10.4); Platelet Count 315 thou/uL (130-400); Red Blood Cell (RBC) Count 4.51 mill/uL (4.70-6.10); White Blood Cell (WBC) Count 6.5 thou/uL (4.8-10.8)
[2020-06-16] MEDS ORDERED: Acetaminophen 325 MG TAB PO PRN (01:42)
[2020-06-16] MEDS ORDERED: Ondansetron ODT 4 MG TAB PO PRN (01:42)
[2020-06-16 01:47] LABS: Troponin I Less than 0.010 ng/mL (< 0.028)
[2020-06-16] MEDS ORDERED: Potassium Chloride 20 MEQ TAB PO SCH (02:15)
[2020-06-16 02:25] LABS: Cardiac Risk 2.9 (Less than 4.5)
[2020-06-16 03:21] VITALS: BMI 25.2
[2020-06-16 05:04] LABS: Creatinine, Urine Less than 20.00 mg/dL (63-166); Sodium, Urine 34 mmol/L (Not Available)
[2020-06-16 05:11] LABS: Hemoglobin A1c 5.4 % (4.0-6.0)
[2020-06-16 05:26] LABS: Troponin I 0.012 ng/mL (< 0.028)
[2020-06-16 07:36] VITALS: BP 127/73; TEMP 97
[2020-06-16] MEDS: Lisinopril 10 MG TAB PO SCH ×2 (08:55→08:57)
[2020-06-16] MEDS ORDERED: Enoxaparin Sodium 40 MG/0.4 ML SYRINGE SC SCH (09:00)
[2020-06-16] MEDS ORDERED: Aspirin 325 mg Enteric Coated Tablet PO SCH (09:00)
[2020-06-16 09:09] LABS: Anion Gap 12 mmol/L (10-20); BUN (Urea Nitrogen) 7 mg/dL (8.4-25.7); Calc. Creatinine Clearance 122 mL/min (70-130); Calcium 9.3 mg/dL (7.8-10.44); Carbon Dioxide 23 mmol/L (22-29); Chloride 106 mmol/L (98-107); Estimated GFR-MDRD Greater than 90; Glucose 90 mg/dL (70-105); Potassium 4.2 mmol/L (3.5-5.1); Sodium 137 mmol/L (136-145)
--- NOTE | 2020-06-16 09:22 | RAD ---
PORTABLE CHEST: Date: 06/15/2020 PROVIDED CLINICAL HISTORY: Hypertension. FINDINGS: Comparison with 03/24/2020. Cardiac and mediastinal silhouette is within normal limits. Median sternotomy changes are seen. No fo seferino consolidation, pleural fluid, or pneumothorax apparent. IMPRESSION: No evidence for an acute cardiopulmonary process. POS: ANGELIKA
[2020-06-16 16:06] LABS: SARS-CoV-2 MS2 Positive; SARS-CoV-2 N Gene Negative; SARS-CoV-2 S Gene Negative; SARS-CoV-2 by NAA Not Detected (NotDetected); SARS-CoV-2 orf1ab Negative
== END 2020-06-16 11:22 | disposition home or self-care (01) ==
LOC: ERS 20:23 → 2SW 06-16 01:00
PROVIDERS: ADMIT Family Medicine; ATTEND Family Medicine
DX: R55 Syncope and collapse (principal); I25.10 Atherosclerotic heart disease of native coronary artery without angina pectoris; E78.5 Hyperlipidemia, unspecified; I10 Essential (primary) hypertension; E87.1 Hypo-osmolality and hyponatremia; E87.6 Hypokalemia; Z87.891 Personal history of nicotine dependence; Z79.82 Long term (current) use of aspirin; Z79.899 Other long term (current) drug therapy; Z88.5 Allergy status to narcotic agent; Z95.1 Presence of aortocoronary bypass graft; Z95.2 Presence of prosthetic heart valve; Z20.828 Contact with and (suspected) exposure to other viral communicable diseases
CPT/HCPCS: 36415; 71045; 80048; 80053; 80061; 82570; 83036; 83880; 83930; 83935; 84300; 84443; 84484; 85025; 87635; 93005; 94760; G0378; U0003

== ENCOUNTER 2022-11-06 06:50 | Observation (INO) | payer BC ==
[2022-11-06 08:06] LABS: #Basophils 0.1 thou/uL (0.0-0.2); #Eosinphils 0.1 thou/uL (0.0-0.7); #Lymphocytes 1.5 thou/uL (1.20-3.40); #Monocytes 0.9 thou/uL (0.11-0.59); #Neutrophils 9.1 thou/uL (1.40-6.50); %Basophils 0.5 % (0.0-1.0); %Eosinophils 0.6 % (0.0-10.0); %Lymphocytes 13.2 % (21.0-51.0); %Monocytes 7.4 % (0.0-10.0); %Neutrophils 78.2 % (42.0-75.0); Hemoglobin 10.9 g/dL (14.0-18.0); Mean Corpuscular HGB CONC 32.1 g/dL (32.0-36.0); Mean Corpuscular Hemoglobin 27.5 pg (27.0-31.0); Mean Corpuscular Volume 85.8 fl (78.0-98.0); Mean Platelet Volume 5.6 fL (7.4-10.4); Platelet Count 672 10x3/uL (130-400); RBC Distribution Width 15.1 % (11.5-14.5); Red Blood Cell (RBC) Count 3.96 mill/uL (4.70-6.10); White Blood Cell (WBC) Count 11.6 10x3/uL (4.8-10.8)
[2022-11-06 08:27] LABS: INR-International Normal Ratio 1.1; PTT 33.8 sec (22.9-36.1); Prothrombin Time 14.4 sec (12.0-14.7)
[2022-11-06 08:29] LABS: ALT (SGPT) 17 U/L (8-55); AST (SGOT) 18 U/L (5-34); Albumin 3.4 g/dL (3.5-5.0); Alkaline Phosphatase 98 U/L (40-110); Anion Gap 14 mmol/L (10-20); BUN (Urea Nitrogen) 9 mg/dL (8.4-25.7); Bilirubin, Total 0.5 mg/dL (0.2-1.2); CK (CPK) 17 U/L (30-200); Calc. Creatinine Clearance 0 mL/min (70-130); Calcium 9.1 mg/dL (7.8-10.44); Carbon Dioxide 21 mmol/L (22-29); Chloride 100 mmol/L (98-107); Estimated GFR 106; Globulin 3.5 g/dL (2.4-3.5); Glucose 123 mg/dL (70-105); Potassium 4.2 mmol/L (3.5-5.1); Protein, Total 6.9 g/dL (6.0-8.3); Sodium 131 mmol/L (136-145)
[2022-11-06 09:05] LABS: CKMB 1.1 ng/mL (0-6.6)
[2022-11-06] MEDS ORDERED: Acetaminophen 325 MG TAB PO PRN (10:36)
[2022-11-06 11:28] LABS: SARS-CoV-2 NAA Rapid Test Not Detected (NotDetected)
[2022-11-06 12:10] LABS: Critical Call Chem Troponin I RESULT DECREASING; Troponin I 0.218 ng/mL (< 0.028)
[2022-11-06] MEDS ORDERED: Iopamidol-370 76% 500 ML 1 ML ONE (15:00)
[2022-11-06 15:18] LABS: Troponin I 0.236 ng/mL (< 0.028)
[2022-11-06] MEDS ORDERED: Atorvastatin Calcium 40 MG TAB PO SCH (21:00)
[2022-11-07] MEDS ORDERED: Aspirin 325 MG TAB PO SCH (09:00)
== END 2022-11-06 17:30 | disposition home or self-care (01) ==
LOC: ERS 06:50 → ERHOLD 10:11
PROVIDERS: ADMIT Internal Medicine; ATTEND Internal Medicine
DX: R20.0 Anesthesia of skin (principal); R77.8 Other specified abnormalities of plasma proteins; K76.89 Other specified diseases of liver; D50.9 Iron deficiency anemia, unspecified; R19.5 Other fecal abnormalities; D75.838 Other thrombocytosis; I10 Essential (primary) hypertension; E78.5 Hyperlipidemia, unspecified; I25.10 Atherosclerotic heart disease of native coronary artery without angina pectoris; M47.816 Spondylosis without myelopathy or radiculopathy, lumbar region; Z87.891 Personal history of nicotine dependence; Z79.82 Long term (current) use of aspirin; Z79.899 Other long term (current) drug therapy; Z88.8 Allergy status to other drugs, medicaments and biological substances; Z95.1 Presence of aortocoronary bypass graft; Z95.2 Presence of prosthetic heart valve; Z20.822 Contact with and (suspected) exposure to COVID-19
CPT/HCPCS: 36415; 36416; 70450; 71275; 72110; 74174; 80053; 82550; 82553; 84484; 85025; 85610; 85730; 93005; G0378; Q9967; U0002

== ENCOUNTER 2022-11-26 08:43 | Outpatient (CLI) | payer BC ==
[2022-11-26] MEDS ORDERED: Iopamidol 370 76% 100 ML VIAL ONE (15:01)
== END 2022-11-26 08:44 | disposition home or self-care (01) ==
LOC: CT 08:43
PROVIDERS: ATTEND Internal Medicine
DX: R93.3 Abnormal findings on diagnostic imaging of other parts of digestive tract (principal); D50.9 Iron deficiency anemia, unspecified; K76.9 Liver disease, unspecified; N28.89 Other specified disorders of kidney and ureter
CPT/HCPCS: 74170; Q9967

== ENCOUNTER 2023-02-06 08:32 | Emergency (ER) | payer BC ==
[2023-02-06 09:01] LABS: #Eosinphils 0.1 thou/uL (0.0-0.7); #Lymphocytes 1.2 thou/uL (1.20-3.40); #Monocytes 0.8 thou/uL (0.11-0.59); %Basophils 0.3 % (0.0-1.0); %Eosinophils 0.7 % (0.0-10.0); %Lymphocytes 8.9 % (21.0-51.0); %Monocytes 6.4 % (0.0-10.0); %Neutrophils 83.7 % (42.0-75.0); Hemoglobin 9.2 g/dL (14.0-18.0); Mean Corpuscular HGB CONC 32.8 g/dL (32.0-36.0); Mean Corpuscular Hemoglobin 28.6 pg (27.0-31.0); Mean Corpuscular Volume 87.2 fl (78.0-98.0); Mean Platelet Volume 5.8 fL (7.4-10.4); Platelet Count 604 10x3/uL (130-400); RBC Distribution Width 15.5 % (11.5-14.5); Red Blood Cell (RBC) Count 3.22 mill/uL (4.70-6.10); White Blood Cell (WBC) Count 13.1 10x3/uL (4.8-10.8)
[2023-02-06 09:23] LABS: ALT (SGPT) 20 U/L (8-55); AST (SGOT) 28 U/L (5-34); Albumin 3.5 g/dL (3.5-5.0); Alkaline Phosphatase 98 U/L (40-110); Anion Gap 12 mmol/L (10-20); BUN (Urea Nitrogen) 12 mg/dL (8.4-25.7); Bilirubin, Total 0.9 mg/dL (0.2-1.2); Calc. Creatinine Clearance 0 mL/min (70-130); Calcium 9.4 mg/dL (7.8-10.44); Carbon Dioxide 20 mmol/L (22-29); Chloride 96 mmol/L (98-107); Estimated GFR 107; Globulin 3.1 g/dL (2.4-3.5); Glucose 109 mg/dL (70-105); Lipase 16 U/L (8-78); Magnesium 1.7 mg/dL (1.6-2.6); Potassium 4.8 mmol/L (3.5-5.1); Protein, Total 6.6 g/dL (6.0-8.3); Sodium 123 mmol/L (136-145)
[2023-02-06 09:42] LABS: CKMB 2.3 ng/mL (0-6.6)
== END 2023-02-06 11:23 | disposition home or self-care (01) ==
LOC: ERS 08:32
DX: E87.1 Hypo-osmolality and hyponatremia (principal); I10 Essential (primary) hypertension; E78.5 Hyperlipidemia, unspecified; I25.10 Atherosclerotic heart disease of native coronary artery without angina pectoris; Z87.891 Personal history of nicotine dependence; Z79.899 Other long term (current) drug therapy; Z79.82 Long term (current) use of aspirin
CPT/HCPCS: 36415; 71045; 80053; 82553; 83690; 83735; 84443; 84484; 85025; 93005

== ENCOUNTER 2023-02-09 14:38 | Outpatient (CLI) | payer BC | END 2023-02-09 14:39 | disposition home or self-care (01) | LOC: TBSIIMAG 14:38 | PROVIDERS: ATTEND Neurological Surgery | DX: G95.9 Disease of spinal cord, unspecified (principal); M48.062 Spinal stenosis, lumbar region with neurogenic claudication; M47.812 Spondylosis without myelopathy or radiculopathy, cervical region; M50.323 Other cervical disc degeneration at C6-C7 level; M48.02 Spinal stenosis, cervical region; M47.816 Spondylosis without myelopathy or radiculopathy, lumbar region; M25.78 Osteophyte, vertebrae; R29.890 Loss of height; M47.817 Spondylosis without myelopathy or radiculopathy, lumbosacral region | CPT/HCPCS: 72141; 72148 ==

== ENCOUNTER 2023-05-09 19:17 | Inpatient (IN) | payer BC ==
[2023-05-09] MEDS ORDERED: Senokot S 8.6-50 MG TAB PO PRN (21:47)
[2023-05-09] MEDS ORDERED: Ondansetron ODT 4 MG TAB PO PRN (21:47)
[2023-05-09] MEDS ORDERED: Electrolyte Replacement Protocol 1 EACH FS SCH (21:47)
[2023-05-09] MEDS ORDERED: Polyethylene Glycol 3350 17 GM Packet PO PRN (21:54)
[2023-05-09 22:57] LABS: #Monocytes 0.4 thou/uL (0.11-0.59); #Neutrophils 1.8 thou/uL (1.40-6.50); %Basophils 1.1 % (0.0-1.0); %Eosinophils 0.3 % (0.0-10.0); %Lymphocytes 37.5 % (21.0-51.0); %Neutrophils 50.8 % (42.0-75.0); Hemoglobin 11.5 g/dL (14.0-18.0); Mean Corpuscular HGB CONC 33.8 g/dL (32.0-36.0); Mean Corpuscular Hemoglobin 31.9 pg (27.0-31.0); Mean Corpuscular Volume 94.4 fl (78.0-98.0); Mean Platelet Volume 9.1 fL (7.4-10.4); Platelet Count 279 10x3/uL (130-400); White Blood Cell (WBC) Count 3.6 10x3/uL (4.8-10.8)
[2023-05-09 23:11] LABS: INR-International Normal Ratio 1.6; PTT 38.2 sec (22.9-36.1); Prothrombin Time 19.4 sec (12.0-14.7)
[2023-05-09 23:29] LABS: ALT (SGPT) 13 U/L (8-55); AST (SGOT) 22 U/L (5-34); Albumin 3.6 g/dL (3.5-5.0); Alkaline Phosphatase 69 U/L (40-110); Anion Gap 11 mmol/L (10-20); BUN (Urea Nitrogen) 11 mg/dL (8.4-25.7); Bilirubin, Total 0.6 mg/dL (0.2-1.2); Calc. Creatinine Clearance 142 mL/min (70-130); Calcium 9.6 mg/dL (7.8-10.44); Carbon Dioxide 25 mmol/L (22-29); Chloride 102 mmol/L (98-107); Estimated GFR 113; Globulin 2.1 g/dL (2.4-3.5); Glucose 91 mg/dL (70-105); Magnesium 1.8 mg/dL (1.6-2.6); Potassium 4.1 mmol/L (3.5-5.1); Protein, Total 5.7 g/dL (6.0-8.3); Sodium 134 mmol/L (136-145)
[2023-05-10 00:59] LABS: Troponin I 0.247 ng/mL (< 0.028)
[2023-05-10] MEDS ORDERED: traZODone HCl 50 MG TAB PO PRN (01:01)
[2023-05-10] MEDS ORDERED: Midodrine HCl 5 MG TAB PO PRN (01:01)
[2023-05-10 01:43] LABS: Amphetamine Not Detected (NotDetected); Barbiturates Screen Not Detected (NotDetected); Benzodiazepine Screen Not Detected (NotDetected); Cocaine Metabolite Screen Not Detected (NotDetected); Methadone Not Detected (NotDetected); Methamphetamine Not Detected (NotDetected); Opiate Screen Not Detected (NotDetected); Oxycodone Screen Not Detected (NotDetected); Phencyclidine (PCP) Not Detected (NotDetected); THC/Cannabinoid Screen Not Detected (NotDetected); Tricyclic Screen Detected (NotDetected)
[2023-05-10] MEDS: Acetaminophen 325 MG TAB PO PRN ×4 (05:26→20:21)
[2023-05-10 05:42] LABS: Troponin I 0.261 ng/mL (< 0.028)
[2023-05-10] MEDS ORDERED: Furosemide 40 MG/4 ML VIAL SLOW IVP SCH (06:00)
[2023-05-10] MEDS ORDERED: Magnesium 2 GM/50 ML(in water) 2 GM in Premix Bag 1 BAG IVPB SCH (08:00)
[2023-05-10] MEDS: Sodium Chloride 1 GM TAB PO SCH ×2 (09:16→20:37)
[2023-05-10] MEDS: Amoxicillin/Potassium Clav 500 MG TAB PO SCH ×3 (09:16→20:23)
[2023-05-10] MEDS: Gabapentin 300 MG CAP PO SCH ×3 (09:17→20:22)
[2023-05-10] MEDS: Famotidine 20 MG TAB PO SCH ×2 (09:17→20:23)
[2023-05-10] MEDS: Aspirin Chewable 81 MG TAB PO SCH (09:17)
[2023-05-10] MEDS: Lisinopril 10 MG TAB PO SCH (09:25)
[2023-05-10] MEDS ORDERED: WARFARIN PO PRN (12:49)
[2023-05-10] MEDS: Warfarin Sodium 3 MG TAB PO SCH (16:48)
[2023-05-10] MEDS: Tamsulosin HCl 0.4 MG CAP PO SCH (20:22)
[2023-05-10] MEDS: Atorvastatin Calcium 40 MG TAB PO SCH (20:23)
[2023-05-11 04:52] LABS: #Basophils 0.1 thou/uL (0.0-0.2); #Monocytes 0.4 thou/uL (0.11-0.59); #Neutrophils 1.9 thou/uL (1.40-6.50); %Basophils 1.6 % (0.0-1.0); %Eosinophils 0.3 % (0.0-10.0); %Lymphocytes 35.1 % (21.0-51.0); %Monocytes 10.6 % (0.0-10.0); %Neutrophils 52.1 % (42.0-75.0); Hemoglobin 12.2 g/dL (14.0-18.0); Mean Corpuscular Hemoglobin 31.3 pg (27.0-31.0); Mean Corpuscular Volume 94.9 fl (78.0-98.0); Mean Platelet Volume 9.3 fL (7.4-10.4); Platelet Count 275 10x3/uL (130-400); RBC Distribution Width 16.9 % (11.5-14.5); White Blood Cell (WBC) Count 3.7 10x3/uL (4.8-10.8)
[2023-05-11 04:57] LABS: INR-International Normal Ratio 1.6; Prothrombin Time 20.1 sec (12.0-14.7)
[2023-05-11] MEDS: Furosemide 20 MG/2 ML VIAL SLOW IVP SCH ×2 (05:08→13:09)
[2023-05-11 05:13] LABS: Anion Gap 14 mmol/L (10-20); BUN (Urea Nitrogen) 15 mg/dL (8.4-25.7); Calc. Creatinine Clearance 133 mL/min (70-130); Calcium 9.5 mg/dL (7.8-10.44); Carbon Dioxide 24 mmol/L (22-29); Chloride 100 mmol/L (98-107); Estimated GFR 111; Glucose 101 mg/dL (70-105); Magnesium 2.3 mg/dL (1.6-2.6); Potassium 4.2 mmol/L (3.5-5.1); Sodium 134 mmol/L (136-145)
[2023-05-11] MEDS: Gabapentin 300 MG CAP PO SCH ×3 (08:34→20:16)
[2023-05-11] MEDS: Acetaminophen 325 MG TAB PO PRN ×3 (08:34→20:17)
[2023-05-11] MEDS: Aspirin Chewable 81 MG TAB PO SCH (08:34)
[2023-05-11] MEDS: Sodium Chloride 1 GM TAB PO SCH ×2 (08:34→20:16)
[2023-05-11] MEDS: Amoxicillin/Potassium Clav 500 MG TAB PO SCH ×3 (08:34→20:16)
[2023-05-11] MEDS: Famotidine 20 MG TAB PO SCH ×2 (08:34→20:18)
[2023-05-11] MEDS: Lisinopril 10 MG TAB PO SCH (08:41)
[2023-05-11 12:09] VITALS: BMI 22.2
[2023-05-11] MEDS: Warfarin Sodium 3 MG TAB PO SCH (16:12)
[2023-05-11] MEDS: Atorvastatin Calcium 40 MG TAB PO SCH (20:17)
[2023-05-11] MEDS: Tamsulosin HCl 0.4 MG CAP PO SCH (20:17)
[2023-05-12 05:07] LABS: INR-International Normal Ratio 1.7; Prothrombin Time 20.3 sec (12.0-14.7)
[2023-05-12] MEDS: Furosemide 20 MG/2 ML VIAL SLOW IVP SCH (06:03)
[2023-05-12] MEDS: Acetaminophen 325 MG TAB PO PRN ×2 (09:46→14:37)
[2023-05-12] MEDS: Sodium Chloride 1 GM TAB PO SCH (09:47)
[2023-05-12] MEDS: Gabapentin 300 MG CAP PO SCH ×2 (09:48→14:48)
[2023-05-12] MEDS: Famotidine 20 MG TAB PO SCH (09:48)
[2023-05-12] MEDS: Amoxicillin/Potassium Clav 500 MG TAB PO SCH ×2 (09:48→14:38)
[2023-05-12] MEDS: Aspirin Chewable 81 MG TAB PO SCH (09:52)
[2023-05-12] MEDS ORDERED: Furosemide 20 MG/2 ML VIAL SLOW IVP SCH (12:00)
[2023-05-12] MEDS ORDERED: Warfarin Sodium 5 MG TAB PO SCH (17:00)
[2023-05-12] MEDS ORDERED: Warfarin Sodium 2 MG TAB PO SCH (17:00)
[2023-05-12 18:42] VITALS: BP 138/92; TEMP 97.8
== END 2023-05-12 19:11 | disposition home or self-care (01) | DRG 291 ==
LOC: 2NO 19:17
PROVIDERS: ADMIT Student in an Organized Health Care Education/Training Program; ATTEND Internal Medicine
DX: I11.0 Hypertensive heart disease with heart failure (principal); I50.23 Acute on chronic systolic (congestive) heart failure; I48.92 Unspecified atrial flutter; I38 Endocarditis, valve unspecified; E22.2 Syndrome of inappropriate secretion of antidiuretic hormone; I47.29 Other ventricular tachycardia; I42.9 Cardiomyopathy, unspecified; I95.9 Hypotension, unspecified; I25.10 Atherosclerotic heart disease of native coronary artery without angina pectoris; E78.5 Hyperlipidemia, unspecified; Z95.4 Presence of other heart-valve replacement; Z95.0 Presence of cardiac pacemaker; Z79.899 Other long term (current) drug therapy; Z79.82 Long term (current) use of aspirin; Z79.2 Long term (current) use of antibiotics; Z79.01 Long term (current) use of anticoagulants; Z95.1 Presence of aortocoronary bypass graft; Z98.890 Other specified postprocedural states; Z90.89 Acquired absence of other organs
CPT/HCPCS: 36415; 71045; 80048; 80053; 80306; 83735; 83880; 84443; 84484; 85025; 85610; 85730; 93306; 93798; J1650; J1940; J3475

== ENCOUNTER 2023-10-05 13:20 | Outpatient (CLI) | payer BC | END 2023-10-05 13:21 | disposition home or self-care (01) | LOC: RAD 13:20 | PROVIDERS: ATTEND Physician Assistant | DX: I42.9 Cardiomyopathy, unspecified (principal); J90 Pleural effusion, not elsewhere classified | CPT/HCPCS: 71046 ==